=== PATIENT | male | born 1975 | race Caucasian/White ===

== ENCOUNTER 2017-10-29 19:07 | Inpatient (IN) | payer BC, OTHER ==
[~2017-10-29] VITALS: Ht 177.8 cm; Wt 83.9 kg
[2017-10-29] MEDS ORDERED: diphenhydrAMINE 50 MG CAPSULE PO PRN (21:15)
[2017-10-29] MEDS ORDERED: HYDROXYZINE PAMOATE 25 MG CAPSULE PO PRN (21:15)
[2017-10-29] MEDS ORDERED: BUPRENORPHINE HCL 2 MG TAB.SUBL SL PRN (21:15)
[2017-10-29] MEDS ORDERED: MAGNESIUM HYDROXIDE 30 ML LIQUID UDC PO PRN (21:15)
[2017-10-29] MEDS ORDERED: LORAZEPAM 2 MG/1 ML VIAL IM PRN (21:15)
[2017-10-29] MEDS ORDERED: ONDANSETRON ODT 4 MG TAB.RAPDIS SL PRN (21:15)
[2017-10-29] MEDS ORDERED: LORAZEPAM 1 MG TABLET PO PRN ×2 (21:15)
[2017-10-29] MEDS ORDERED: ONDANSETRON 4 MG/2 ML VIAL IM PRN (21:15)
[2017-10-29] MEDS ORDERED: LOPERAMIDE HCL 2 MG CAPSULE PO PRN ×2 (21:15)
[2017-10-29] MEDS ORDERED: MAG HYDROX/AL HYDROX/SIMETH 30 ML LIQUID UDC PO PRN (21:15)
[2017-10-29] MEDS ORDERED: ACETAMINOPHEN 325 MG TABLET PO PRN (21:15)
[2017-10-29] MEDS ORDERED: DICYCLOMINE HCL 20 MG TABLET PO PRN (21:15)
[2017-10-29] MEDS ORDERED: MIRALAX 17 GM POWD.PACK PO PRN (21:15)
[2017-10-29] MEDS ORDERED: CLONIDINE HCL 0.1 MG TABLET PO PRN (21:15)
[2017-10-29] MEDS ORDERED: METHOCARBAMOL 750 MG TABLET PO PRN (21:15)
[2017-10-29] MEDS ORDERED: IBUPROFEN 600 MG TABLET PO PRN (21:15)
--- NOTE | 2017-10-29 21:30 | NUR ---
INTAKE ASSESSMENT Pt is in stable condition and able to be admitted on the unit. Unit protocols regarding home medications and vital signs Q4H were explained. Pt verbalized understanding. Will continue admission upon arrival on the unit.
[2017-10-29 21:49] LABS: BASOPHILS % (AUTO) 0.8 % (0.0-2.0); EOSINOPHILS % (AUTO) 1.6 % (0.0-7.0); HEMATOCRIT 37.6 % (36.7-47.1); HEMOGLOBIN 13.2 g/dL (12.5-16.3); LYMPHOCYTES % (AUTO) 37.7 % (20.5-51.5); MEAN CORPUSCULAR HEMOGLOBIN 30.4 uug (23.8-33.4); MEAN CORPUSCULAR HGB CONC 35 g/dL (32.5-36.3); MEAN CORPUSCULAR VOLUME 86.5 fL (73.0-96.2); MONOCYTES % (AUTO) 10.8 % (0.0-11.0); NEUTROPHILS % (AUTO) 49.1 % (38.5-71.5); PLATELET COUNT (AUTO) 260 K/uL (152-348); RED BLOOD CELL COUNT(AUTO) 4.35 MIL/uL (4.06-5.63); WHITE BLOOD COUNT (AUTO) 9.4 K/uL (3.6-10.2)
[2017-10-29 21:50] LABS: BASOPHILS # (AUTO) 0.1 K/uL (0.0-8.0); EOSINOPHILS # (AUTO) 0.2 K/uL (0.0-0.7); LYMPHOCYTES # (AUTO) 3.5 K/uL (20.0-40.0); NEUTROPHILS # (AUTO) 4.6 K/uL (1.8-8.9)
--- NOTE | 2017-10-29 22:00 | NUR ---
ADMISSION NOTE CIWA:9 COWS:9 Pt arrived ambulatory from [facility] Intake to the third floor accompanied by a PASSENGER BARGE MASTER at 2140. Pt is a 41 year old male admitted on 10/29/17 for Heroin, Methamphetamine, Xanax and Marijuana dependency. Pt is full code with NKA. Pt reports PMHx of epilepsy and anxiety. He denies having a PCP. He reports taking home medications of Neurontin 600 mg TID and Depakote 500mg BID. Medications have been reconciled. He reports his last sobriety was for 17 months in November 2015. His last detox was at [facility] in [place], [place] in 2015. He describes his current use as: 1. Heroin 2 grams IV daily for 11 months. Last dose: 2 grams IV on 10/29/17 at 0200 2. Methamphetamine 1/2 gram (smoke) daily for 11 months. Last dose: 1/2 gram on 10/29/17 at 0200. 3. Xanax 2-4 mg intermittently for 11 months. Last dose: 2 mg on 10/29/17 at 0200. 4. Marijuana 1 gram daily. Last dose: 10/29/17 at 0200 He describes his withdrawal symptoms as: "sweats, chills, body aches, nausea." Upon assessment, pt is alert and oriented x4, speech is clear and audible. Pt noted with anxiety, agitation and diaphoresis. Heart rate regular. Denies chest pain or SOB. PERRLA, breathing is even and unlabored, lung sounds clear. Abdomen is soft and non-distended. Bowel sounds present in all quadrants, last BM 10/28/17. Pt reports that BM is regular. Pt's skin is warm, and dry. Noted with multiple scabs on face, bilateral arms, back and chest d/t skin picking. No drainage noted. Pt also noted with closed abscess to left and right forearms. Picture taken and placed in chart. Pt was seen and examined by Dr. Carrasquillo. Pt oriented to room and unit. Safety measures in place. Will continue to monitor.
[2017-10-29 22:05] LABS: ALANINE AMINOTRANSFERASE 14 U/L (16-63); ALKALINE PHOSPHATASE 90 U/L (50-136); ASPARTATE AMINOTRANSFERASE 19 U/L (15-37); BILIRUBIN,TOTAL 0.3 mg/dL (0.2-1.0); CARBON DIOXIDE 27 mmol/L (21-32); CHLORIDE 103 mmol/L (98-107); GLUCOSE 93 mg/dL (74-106); MAGNESIUM 1.9 mg/dL (1.8-2.4); POTASSIUM 4.2 mmol/L (3.5-5.1); TOTAL PROTEIN, SERUM 7.7 g/dL (6.4-8.2); UREA NITROGEN, BLOOD 15 mg/dL (7-18)
[2017-10-29 22:27] LABS: ETHANOL < 3 MG/DL (0-0)
--- NOTE | 2017-10-29 22:47 | NUR ---
PRN CLONIDINE Pt reports anxiety, agitation, and diaphoresis. PRN Clonidine administered as ordered. Safety measures in place. Will monitor effectiveness.
[2017-10-29] MEDS ORDERED: CLONIDINE HCL 0.1 MG TABLET ONE (23:01)
--- NOTE | 2017-10-29 23:47 | NUR ---
PRN CLONIDINE REASSESSMENT PRN medication effective. Pt lying in bed with eyes closed noted to be asleep. Breathing is even and unlabored. Safety measures in place. Will continue to monitor.
[2017-10-30] VITALS: BP 104/56
--- NOTE | 2017-10-30 04:00 | NUR ---
VITALS REFUSED, COWS DEFERRED 0400 vitals refused. COWS deferred d/t pt lying in bed with eyes closed noted to be asleep. Breathing is even and unlabored. Safety measures in place. Will monitor.
--- NOTE | 2017-10-30 07:05 | NUR ---
Start of Shift Endorsement received from nightshift nurse. Pt is a 41 y/o male admitted for Heroin, Meth and occasional Xanax use. Pt has been placed on a 5 day Subutex taper set to began today, 10/30/17. Pt is moderately withdrawing AEB COWS 9 at midnight. Pt reports sleeping 4 hours. Pt received PRN Clonidine. PT is alert and oriented x4. Pt is in STABLE condition at this time. Remains compliant with medication and diet regimen. All needs have been met, All safety measures in place per hospital policy. Bed in lowest position, side rails up x2, call-light within reach. Will continue to monitor
--- NOTE | 2017-10-30 07:11 | NUR ---
END OF SHIFT Pt is a 41 year old male admitted on 10/29/17 for Heroin, Methamphetamine, Xanax and Marijuana dependency. Pt is full code with NKA. Pt reports PMHx of epilepsy and anxiety. He was unable to provide UDS. He is scheduled to start a 5 day Subutex taper today 10/30/17. At 2247 he received PRN Clonidine. He slept a total of 4 hrs, Intake:1590mL, Void:0, BM: 0, COWS:9, CIWA:9. Pt remains alert and oriented x4, breathing is even and unlabored. Safety measures in place. Endorsed to AM shift.
[2017-10-30] MEDS ORDERED: orajel (07:24)
[2017-10-30 08:00] VITALS: BP 105/63
[2017-10-30] MEDS ORDERED: TUBERCULIN,PURIF.PROT.DERIV. 5 TU/0.1 ML TEST ID ONE (09:00)
[2017-10-30] MEDS: GABAPENTIN 300 MG CAPSULE PO SCH ×3 (09:01→20:43)
[2017-10-30] MEDS: DOXYCYCLINE HYCLATE 100 MG TABLET PO SCH ×2 (09:01→20:44)
[2017-10-30] MEDS: DIVALPROEX 500 MG TABLET.DR PO SCH ×2 (09:01→20:43)
[2017-10-30] MEDS: BUPRENORPHINE HCL 2 MG TAB.SUBL SL SCH ×4 (09:34→20:44)
[2017-10-30 09:54] LABS: *AMPHETAMINE, URINE POSITIVE (NEGATIVE); *BARBITURATE, URINE NEGATIVE (NEGATIVE); *CANNABINOID, URINE POSITIVE (NEGATIVE); *COCCAINE, URINE NEGATIVE (NEGATIVE); *OPIATE, URINE POSITIVE (NEGATIVE); *PHENCYCLIDINE SCREEN,URINE NEGATIVE (NEGATIVE)
[2017-10-30 12:00] VITALS: BP 114/66
[2017-10-30 16:00] VITALS: BP 108/60
[2017-10-30] MEDS ORDERED: METHOCARBAMOL 750 MG TABLET PO PRN (16:00)
--- NOTE | 2017-10-30 17:11 | NUR ---
PRN Ativan Administered PRN Ativan 1mg for for CIWA 7
--- NOTE | 2017-10-30 17:50 | NUR ---
Medication re-assessment Medication was effective, CIWA 4 upon re-assessment
--- NOTE | 2017-10-30 19:00 | NUR ---
End of Shift Endorsement given to nightshift nurse. Pt is a 41 y/o male admitted for Heroin, Meth and occasional Xanax use. Pt has been placed on a 5 day Subutex taper. Pt is moderately withdrawing AEB COWS 9, CIWA 7 at 1600. Pt remained . Pt received PRN Ativan for CIWA 7. Educated pt on diet and medication regimen. Intake: 400ml, Void x1, BM x0. PT is alert and oriented x4. Pt is in STABLE condition at this time. Remains compliant with medication and diet regimen. All needs have been met, All safety measures in place per hospital policy. Bed in lowest position, side rails up x2, call-light within reach. Will continue to monitor
--- NOTE | 2017-10-30 19:15 | NUR ---
START OF SHIFT Received 41 year old male patient admitted on 10/29/17 for Heroin, Meth, Xanax, and Marijuana dependency. Pt is full code with BRUCE. He reports a PMHx of epilepsy and anxiety. Pt is currently receiving 5 day Subutex taper and tolerating well. Per endorsement, pt received Ativan PRN. Pt is alert and oriented x4, breathing is even and unlabored. Safety measures in place. Will continue to monitor.
[2017-10-30 20:00] VITALS: BP 117/78
[2017-10-31] VITALS: BP 110/65
--- NOTE | 2017-10-31 04:06 | NUR ---
VITALS REFUSED, COWS/CIWA DEFERRED 0400 vitals refused. COWS and CIWA deferred d/t pt lying in bed with eyes closed noted to be asleep. Breathing even and unlabored. Safety measures in place. Will monitor.
--- NOTE | 2017-10-31 07:08 | NUR ---
END OF SHIFT Pt is a 41 year old male patient admitted on 10/29/17 for Heroin, Meth, Xanax, and Marijuana dependency. Pt is full code with NKA. He reports a PMHx of epilepsy and anxiety. Pt continues on 5 day Subutex taper and tolerating well. He did not receive or request PRN medications. He slept a total of 10hrs, Intake:500mL, Void: x1, BM:0, COWS:7, CIWA:6. Pt remains alert and oriented x4, breathing is even and unlabored. Safety measures in place. Endorsed to AM shift.
--- NOTE | 2017-10-31 07:09 | NUR ---
Start of Shift Endorsement received from nightshift nurse. Pt is a 41 y/o male admitted for Heroin, Meth and occasional Xanax use. Pt has been placed on a 5 day Subutex taper set to began today, 10/30/17. Pt is moderately withdrawing AEB COWS 6, CIWA 6 at 0800. Pt reports sleeping 10 hours. Pt did not receive any PRN medications. PT is alert and oriented x4. Pt is in STABLE condition at this time. Remains compliant with medication and diet regimen. All needs have been met, All safety measures in place per hospital policy. Bed in lowest position, side rails up x2, call-light within reach. Will continue to monitor
[2017-10-31 08:00] VITALS: BP 106/62
[2017-10-31] MEDS: BUPRENORPHINE HCL 2 MG TAB.SUBL SL SCH ×3 (08:46→20:19)
[2017-10-31] MEDS: DOXYCYCLINE HYCLATE 100 MG TABLET PO SCH ×2 (08:46→20:20)
[2017-10-31] MEDS: GABAPENTIN 300 MG CAPSULE PO SCH ×3 (08:46→20:19)
[2017-10-31] MEDS: DIVALPROEX 500 MG TABLET.DR PO SCH ×2 (08:46→20:20)
[2017-10-31 09:06] LABS: HEPATITIS B SURFACE AG Negative (Negative)
[2017-10-31 12:00] VITALS: BP 110/68
[2017-10-31 16:00] VITALS: BP 120/70
[2017-10-31] MEDS: BENZOCAINE ORAL CARE 12 ML BOTTLE MM PRN ×2 (17:07→20:27)
--- NOTE | 2017-10-31 18:43 | NUR ---
End of Shift Endorsement given to nightshift nurse. Pt is a 41 y/o male admitted for Heroin, Meth and occasional Xanax use. Pt has been placed on a 5 day Subutex taper. Pt is moderately withdrawing AEB COWS 7, CIWA 5 at 1600. Pt participated in activities. Pt did not participate in groups despite encouragements. . Pt did not receive any PRN medications. . Intake: 3102ml, Void x4, BM x1. PT is alert and oriented x4. Pt is in STABLE condition at this time. Remains compliant with medication and diet regimen. All needs have been met, All safety measures in place per hospital policy. Bed in lowest position, side rails up x2, call-light within reach. Will continue to monitor
--- NOTE | 2017-10-31 19:30 | NUR ---
Start of Shift Received a 41 y/o male admitted on 10/29/2017 for Heroin, Meth and occasional Xanax use. Px has been placed on a 5 day Subutex taper. Px is alert and oriented x4. During the rounds at 1930, px complained of very high anxiety, restlessness, agitation, body aches and hot/cold sweats. All safety measures in place per hospital policy. Bed in lowest position, side rails up x2, call-light within reach. We'll continue to monitor.
[2017-10-31 20:00] VITALS: BP 111/62
[2017-10-31] MEDS: TRAZODONE 100 MG TABLET PO SCH (20:20)
--- NOTE | 2017-10-31 20:20 | NUR ---
PRN Ativan Px complained of high anxiety, restlessness, agitation, body aches and hot/cold sweats, CIWA 16. Ativan 1 mg/tab, 2 tabs given PO as PRN med. We'll continue to monitor.
--- NOTE | 2017-10-31 20:30 | NUR ---
PRN Motrin Px complained of toothache, 06/24. Motrin 600 mg/tab, 1 tab given PO as PRN med. Benzocaine applied on affected teeth as PRN med. We'll continue to monitor.
[2017-11-01] VITALS: BP 110/64
--- NOTE | 2017-11-01 | NUR ---
COWS and CIWA deferred COWS and CIWA deferred due to the px is asleep, to assess if the px is awake per doctor's order. We'll continue to monitor.
[2017-11-01 04:00] VITALS: BP 120/68
--- NOTE | 2017-11-01 07:05 | NUR ---
Start of Shift Endorsement received from nightshift nurse. Pt is a 41 y/o male admitted for Heroin, Meth and occasional Xanax use. Pt has been placed on a 5 day Subutex tape. Pt is moderately withdrawing AEB COWS 9, CIWA 10 at 1999. Pt reports sleeping 8 hours. Pt received PRN Ativan for CIWA 16 during nightshift. PT is alert and oriented x4. Pt is in STABLE condition at this time. Remains compliant with medication and diet regimen. All needs have been met, All safety measures in place per hospital policy. Bed in lowest position, side rails up x2, call-light within reach. Will continue to monitor
--- NOTE | 2017-11-01 07:11 | NUR ---
End of Shift Notes 41 y/o male admitted on 10/29/2017 for Heroin, Meth and occasional Xanax use. Px has been placed on a 5 day Subutex taper. Px is alert and oriented x4. During the shift, At 2019 Px complained of high anxiety, restlessness, agitation, body aches and hot/cold sweats, CIWA 16. Ativan 1 mg/tab, 2 tabs given PO as PRN med. At 2029, Px complained of toothache, 8/10. Motrin 600 mg/tab, 1 tab given PO as PRN med. Benzocaine applied on affected teeth as PRN meds. Oral intake of 1,500 ml, voided 3x, no BM. Slept for 7.5 hours. All safety measures in place per hospital policy. Bed in lowest position, side rails up x2, call-light within reach. We'll continue to monitor
[2017-11-01 08:00] VITALS: BP 122/71
[2017-11-01] MEDS ORDERED: BUPRENORPHINE HCL 2 MG TAB.SUBL SL SCH (09:00)
[2017-11-01] MEDS: DOXYCYCLINE HYCLATE 100 MG TABLET PO SCH ×2 (09:35→21:53)
[2017-11-01] MEDS: GABAPENTIN 300 MG CAPSULE PO SCH ×2 (09:35→14:39)
[2017-11-01] MEDS: DIVALPROEX 500 MG TABLET.DR PO SCH ×2 (09:35→21:52)
--- NOTE | 2017-11-01 10:02 | NUR ---
Therapist prompted client about group times. Client stated he would go to groups if he doesn't feel "too tired."
[2017-11-01 12:00] VITALS: BP 116/65
[2017-11-01] MEDS ORDERED: KETOROLAC TROMETHAMINE 30 MG INJ IM PRN (12:15)
--- NOTE | 2017-11-01 13:47 | NUR ---
Endorsed PT to Russ ALVARADO
--- NOTE | 2017-11-01 13:48 | NUR ---
RECEIVED CARE Received care from Addy LEON. All pertinent information information discussed. Will cont to monitor. Safety measures in place.
[2017-11-01] MEDS: BUPRENORPHINE HCL 2 MG TAB.SUBL SL SCH ×2 (14:39→21:52)
--- NOTE | 2017-11-01 14:44 | NUR ---
PRN VISTARIL Patient reported anxiety and agitation, PRN Vistaril 25mg Po given as ordered. Will cont to monitor and reassess. m
--- NOTE | 2017-11-01 15:44 | NUR ---
VISTARIL REASSESSMENT Caden stated Vistaril was effective feeling less anxiety and agitated. Addendum: 11/01/17 at 1713 by DEREK JACOB LVN Patient
[2017-11-01 16:00] VITALS: BP 111/70
--- NOTE | 2017-11-01 19:12 | NUR ---
END OF SHIFT Patient cont with Subutex taper tolerating well. During shift patient received PRN Vistaril for anxiety, noted to be effective. Vital signs remained WNL. Encourage Po fluids as tolerated. Last CIWA score was 6/COWS-6 @ 1600. Patient attended groups and activities.Skin intact warm and dry to touch. All needs attended, Safety measures in place. Patient endorsed to night nurse in stable condition.
--- NOTE | 2017-11-01 19:30 | NUR ---
Start of Shift Notes Received a 41 y/o male admitted on 10/29/2017 for Heroin, Meth and occasional Xanax use. Px has been placed on a 5 day Subutex taper. Px is alert and oriented x4. During the rounds at 1930, px complained of high anxiety, restlessness, body aches of 8/10 and hot/cold sweats. All safety measures in place per hospital policy. Bed in lowest position, side rails up x2, call-light within reach. We'll continue to monitor.
[2017-11-01 20:00] VITALS: BP 126/72
[2017-11-01] MEDS ORDERED: GABAPENTIN 300 MG CAPSULE PO SCH (21:00)
[2017-11-01] MEDS ORDERED: LORAZEPAM 1 MG TABLET PO PRN (21:15)
[2017-11-01] MEDS ORDERED: LORAZEPAM 1 MG TABLET ONE (21:42)
[2017-11-01] MEDS: TRAZODONE 100 MG TABLET PO SCH (21:52)
[2017-11-01] MEDS: CLONIDINE HCL 0.1 MG TABLET PO SCH (21:52)
[2017-11-01] MEDS: LORAZEPAM 1 MG TABLET PO PRN (21:53)
[2017-11-01] MEDS: BACLOFEN 10 MG TABLET PO SCH (21:53)
[2017-11-02] VITALS: BP 112/68
--- NOTE | 2017-11-02 | NUR ---
COWS and CIWA deferred COWS and CIWA deferred due to the px is asleep, to assess if the px is awake per doctors order. Well continue to monitor.
[2017-11-02 04:00] VITALS: BP 119/72
--- NOTE | 2017-11-02 07:12 | NUR ---
End of Shift Notes 41 y/o male admitted on 10/29/2017 for Heroin, Meth and occasional Xanax use. Px has been placed on a 5 day Subutex taper. Px is alert and oriented x4. During the shift, px complained of high anxiety, restlessness, body aches of 8/10 and hot/cold sweats. Oral intake of 1.5 L, voided 5x, No BM. Slept for 7.5 hours. All safety measures in place per hospital policy. Bed in lowest position, side rails up x2, call-light within reach. We'll continue to monitor.
--- NOTE | 2017-11-02 07:13 | NUR ---
Start of Shift Notes: Received patient in his room. Alert and verbally responsive. Oriented x 4 Able to make his needs known. Respirations even and unlabored. No SOB noted. Skin warm and dry to touch. Abdomen soft and non-distended with (+) BS in all 4 quadrants. No complains of N/V/D or abdominal discomfort noted. Bladder non-distended. Voids independently. Ambulatory ad rosemarie with steady gait. Patient is a 41 year old male admitted for opiate/meth/BZO dependence who was placed on a 5-day Subutex and PRN Ativan taper as ordered. No adverse reactions noted. Prior to admission, patient was using 2 grams of Heroin, 0.5grams of methamphetamine, and 2-4mg intermittently Xanax. NKA. FULL CODE. Regular diet. On fall and seizure precautions. Educated patient on his current plan of care for the day and his medication regimen. Encouraged oral fluid intake and encouraged group participation to learn new skills to prevent relapse. Will continue to monitor.
[2017-11-02 08:00] VITALS: BP 100/52
[2017-11-02] MEDS: CLONIDINE HCL 0.1 MG TABLET PO SCH ×2 (08:57→20:20)
[2017-11-02] MEDS: DOXYCYCLINE HYCLATE 100 MG TABLET PO SCH ×2 (08:57→20:22)
[2017-11-02] MEDS: GABAPENTIN 300 MG CAPSULE PO SCH (08:57)
[2017-11-02] MEDS: BACLOFEN 10 MG TABLET PO SCH (08:58)
[2017-11-02] MEDS: BUPRENORPHINE HCL 2 MG TAB.SUBL SL SCH ×3 (08:58→20:20)
[2017-11-02] MEDS: DIVALPROEX 500 MG TABLET.DR PO SCH ×2 (08:58→20:21)
--- NOTE | 2017-11-02 10:54 | NUR ---
Bentyl 20 mg PO given: Patient noted with complain of stomach cramps related to withdrawal. Denies any diarrhea or constipation. LBM 11/01/2017 in the evening. Medicated patient with Bentyl 20 mg PO as ordered. Will monitor for effectiveness.
--- NOTE | 2017-11-02 11:54 | NUR ---
Re-assessment: Bentyl Per patient, PRN Bentyl was effective in reducing stomach cramps.
[2017-11-02 12:00] VITALS: BP 92/50
[2017-11-02] MEDS: BACLOFEN 20 MG TABLET PO SCH ×2 (14:11→20:22)
[2017-11-02] MEDS: GABAPENTIN 400 MG CAPSULE PO SCH ×2 (14:11→20:21)
[2017-11-02 16:00] VITALS: BP 118/70
[2017-11-02] MEDS: LORAZEPAM 1 MG TABLET PO PRN ×2 (16:55→20:21)
--- NOTE | 2017-11-02 16:57 | NUR ---
PRN Ativan 1 mg PO given: Patient noted with moderate anxiety and mild to moderate agitation. AZ 100 bounding. Medicated patient with Ativan 1 mg PO for CIWA 7. Will monitor for effectiveness.
--- NOTE | 2017-11-02 17:57 | NUR ---
Re-assessment: Ativan Per patient, PRN Ativan has been effective in reducing patient's anxiety and agitation. CIWA 4.
--- NOTE | 2017-11-02 19:02 | NUR ---
End of Shift Notes: Patient continues to be on 5-day Subutex and PRN Ativan as ordered. No adverse reactions noted. VS monitored closely. No significant abnormalities noted. Withdrawal symptoms were closely monitored. Initial COWS 5/CIWA 2, patient presented with chills, anxiety, agitation, hot flashes, stomach cramps, and fine tremors. Medicated patient with Bentyl 20 mg PO at 1054 with help after 1 hour. At 1657, patient noted with CIWA 7 due to moderate anxiety and mild to moderate agitation. Medicated patient with Ativan 1 mg PO as ordered with help after 1 hour. Denies S/I or H/I. Denies any AV hallucinations. Last COWS 4/CIWA 4. Per patient Subutex has been effective in reducing his withdrawal symptoms. Encouraged to participate in group and activities due to episodes of self isolation. All needs met and attended. Will continue to monitor closely.
--- NOTE | 2017-11-02 19:30 | NUR ---
Start of Shift Notes Received a 41 y/o male admitted on 10/29/2017 for Heroin, Meth and occasional Xanax use. Px has been placed on a 5 day Subutex taper. Px is alert and oriented x4. During the rounds at 1930, px complained of high anxiety, restlessness, body aches of 9/10 and hot/cold sweats. All safety measures in place per hospital policy. Bed in lowest position, side rails up x2, call-light within reach. We'll continue to monitor.
[2017-11-02 20:00] VITALS: BP 126/79
[2017-11-02] MEDS: TRAZODONE 100 MG TABLET PO SCH (20:21)
--- NOTE | 2017-11-02 20:21 | NUR ---
PRN meds Px complained of high anxiety, restlessness, body aches of 9/10 and hot/cold sweats. CIWA 8. Robaxin 750 mg/tab, 1 tab and Ativan 1 mg/tab, 1 tab given PO as PRN meds. We'll continue to monitor.
[2017-11-03] VITALS: BP 90/58
[2017-11-03 04:00] VITALS: BP 117/69
--- NOTE | 2017-11-03 04:00 | NUR ---
COWS and CIWA deferred COWS and CIWA deferred at 0000 and 0400 due to the px is asleep, to assess if the px is awake per doctors order. Well continue to monitor.
--- NOTE | 2017-11-03 07:20 | NUR ---
End of Shift Notes 41 y/o male admitted on 10/29/2017 for Heroin, Meth and occasional Xanax use. Px has been placed on a 5 day Subutex taper. Px is alert and oriented x4. During the shift, px complained of high anxiety, restlessness, body aches of 9/10 and hot/cold sweats. Robaxin 750 mg/tab, 1 tab and Ativan 1 mg/tab, 1 tab given PO as PRN med. All safety measures in place per hospital policy. Oral intake of 1,300 ml, voided 4x, BM 1x. Slept for 5 hours. Bed in lowest position, side rails up x2, call-light within reach. We'll continue to monitor.
[2017-11-03 08:00] VITALS: BP 110/71
[2017-11-03] MEDS: BACLOFEN 20 MG TABLET PO SCH ×3 (08:52→20:39)
[2017-11-03] MEDS: GABAPENTIN 400 MG CAPSULE PO SCH ×3 (08:53→20:38)
[2017-11-03] MEDS: DOXYCYCLINE HYCLATE 100 MG TABLET PO SCH ×2 (08:53→20:39)
[2017-11-03] MEDS: DIVALPROEX 500 MG TABLET.DR PO SCH ×2 (08:53→20:39)
[2017-11-03] MEDS: CLONIDINE HCL 0.1 MG TABLET PO SCH ×2 (08:53→20:39)
[2017-11-03] MEDS ORDERED: BUPRENORPHINE HCL 2 MG TAB.SUBL SL SCH (09:00)
[2017-11-03 12:00] VITALS: BP 128/75
[2017-11-03] MEDS: HYDROXYZINE PAMOATE 25 MG CAPSULE PO PRN ×2 (14:18→20:43)
--- NOTE | 2017-11-03 14:18 | NUR ---
Vistaril 50 mg PO given: Patient complained of anxiety. VS stable. Non-pharmacological interventions provided but ineffective. Medicated patient with Vistaril 50 mg PO as ordered. Will monitor for effectiveness.
--- NOTE | 2017-11-03 15:18 | NUR ---
Re-assessment: Vistaril Per patient, PRN Vistaril was effective in reducing patient's anxiety.
[2017-11-03 16:00] VITALS: BP 124/79
--- NOTE | 2017-11-03 18:50 | NUR ---
End of Shift Notes: Patient continues to be on 5-day Subutex and PRN Ativan as ordered. No adverse reactions noted. VS monitored closely. No significant abnormalities noted. Withdrawal symptoms were closely monitored. Initial COWS 6/CIWA 4, patient presented with chills, anxiety, agitation, hot flashes, stomach cramps, and fine tremors. Denies S/I or H/I. Denies any AV hallucinations. Medicated patient with Vistaril 50 mg PO at 1418 with help after 1 hour. Last COWS 3/CIWA 3. Per patient Subutex has been effective in reducing his withdrawal symptoms. Encouraged to participate in group and activities due to episodes of self isolation. All needs met and attended. Will continue to monitor closely.
[2017-11-03 20:00] VITALS: BP 121/79
[2017-11-03] MEDS ORDERED: CLON0.1T14 PO (20:00)
[2017-11-03] MEDS ORDERED: IBUP-1955 PO (20:00)
[2017-11-03] MEDS ORDERED: GABA-536 PO (20:00)
[2017-11-03] MEDS ORDERED: DOXY100T2 PO (20:00)
[2017-11-03] MEDS ORDERED: DICY20TA28 PO (20:00)
[2017-11-03] MEDS ORDERED: DIVA500T2 PO (20:00)
[2017-11-03] MEDS ORDERED: HYDR-3895 PO (20:00)
[2017-11-03] MEDS ORDERED: BACL20TA PO (20:00)
[2017-11-03] MEDS ORDERED: TRAZ-147 PO (20:00)
--- NOTE | 2017-11-03 20:00 | NUR ---
START OF SHIFT NOTE RECEIVED REPORT FROM DAY SHIFT NURSE. PATIENT IS A 41 YEAR OLD MALE ADMITTED FOR OPIATE/METH DEPENDENCE. PATIENT COMPLETED 5 DAY SUBUTEX TAPER, TOLERATED WELL AND NO ADVERSE REACTION. PATIENT IS MEDICALLY CLEARED TO BE DISCHARGE TOMORROW. PATIENT HAS ANBESOL FOR TOOTHACHE. ON DOXYCYCLINE FOR ABSCESS ON BILATERAL ARMS, NO ADVERSE REACTION. LAST COWS 5 AND CIWA 3. RECEIVED PATIENT ALERT AND ORIENTED X 4. RESPIRATION EVEN AND UNLABORED. DENIES ANY PAIN. NO N/V, ANXIOUS. ON FALL PRECAUTION. SAFETY MEASURES IN PLACE. CALL LIGHT IN REACH. WILL CONTINUE TO MONITOR.
[2017-11-03] MEDS: TRAZODONE 100 MG TABLET PO SCH (20:39)
--- NOTE | 2017-11-03 20:43 | NUR ---
PRN VISTARIL ADMINISTRATION PATIENT REPORTS ANXIETY, NOTED RESTLESS, IRRITABLE AND AGITATED. WILL MONITOR FOR EFFECTIVENESS. RELAXATION TECHNIQUE PROVIDED.
--- NOTE | 2017-11-03 21:43 | NUR ---
PRN VISTARIL RE-ASSESSMENT PATIENT STATES VISTARIL IS HELPFUL, ANXIETY IS LESS. WILL CONTINUE TO MONITOR
--- NOTE | 2017-11-04 | NUR ---
COWS AND CIWA DEFERRED PATIENT SLEEPING. COWS AND CIWA DEFERRED. PATIENT REFUSED VS. RESPIRATION EVEN AND UNLABORED. SAFETY MEASURES IN PLACE. CALL LIGHT IN REACH. WILL CONTINUE TO MONITOR.
--- NOTE | 2017-11-04 07:16 | NUR ---
END OF SHIFT NOTE PATIENT IS A 41 YEAR OLD MALE ADMITTED FOR OPIATE/METH DEPENDENCE. PATIENT COMPLETED 5 DAY SUBUTEX TAPER, TOLERATED WELL AND NO ADVERSE REACTION. PATIENT IS MEDICALLY CLEARED TO BE DISCHARGE TODAY. PATIENT HAS ANBESOL FOR TOOTHACHE. ON DOXYCYCLINE FOR CLOSED ABSCESS ON BILATERAL ARMS, NO ADVERSE REACTION. PRN VISTARIL GIVEN FOR ANXIETY. PATIENT COMPLIANT WITH MEDICATIONS AND TREATMENT PLAN. ON FALL PRECAUTION. SAFETY MEASURES IN PLACE. CALL LIGHT IN REACH. WILL CONTINUE TO MONITOR. LAST COWS 3 AND CIWA 2. SLEPT 7 HOURS. FLUID INTAKE 849 ML. VOIDED X 4 . NO BM.
[2017-11-04 08:00] VITALS: BP 129/68
--- NOTE | 2017-11-04 08:00 | NUR ---
Start of Shift Notes: Received patient in his room. Alert and verbally responsive. Oriented x 4 Able to make his needs known. Respirations even and unlabored. No SOB noted. Skin warm and dry to touch. Abdomen soft and non-distended with (+) BS in all 4 quadrants. No complains of N/V/D or abdominal discomfort noted. Bladder non-distended. Voids independently. Ambulatory ad rosemarie with steady gait. Patient is a 41 year old male admitted for opiate/meth/BZO dependence who was placed on a 5-day Subutex and PRN Ativan taper as ordered and completed. No adverse reactions noted. Prior to admission, patient was using 2 grams of Heroin, 0.5grams of methamphetamine, and 2-4mg intermittently Xanax. NKA. FULL CODE. Regular diet. On fall and seizure precautions. Educated patient on the discharge process. Patient verbalized good understanding. Will continue to monitor.
[2017-11-04 08:24] VITALS: BP 125/68
[2017-11-04] MEDS: BACLOFEN 20 MG TABLET PO SCH (08:24)
[2017-11-04] MEDS: DOXYCYCLINE HYCLATE 100 MG TABLET PO SCH (08:24)
[2017-11-04] MEDS: HYDROXYZINE PAMOATE 25 MG CAPSULE PO PRN (08:24)
[2017-11-04] MEDS: CLONIDINE HCL 0.1 MG TABLET PO SCH (08:24)
[2017-11-04] MEDS: GABAPENTIN 400 MG CAPSULE PO SCH (08:24)
--- NOTE | 2017-11-04 08:24 | NUR ---
Vistaril 50 mg PO given: Patient complained of anxiety 02/22. He verbalizes that he is anxious about discharge. Reassurance and redirection provided. Medicated patient with Vistaril 50 mg PO as ordered. Will monitor for effectiveness.
[2017-11-04] MEDS: DIVALPROEX 500 MG TABLET.DR PO SCH (08:26)
--- NOTE | 2017-11-04 09:24 | NUR ---
Re-assessment: Per patient, PRN Vistaril was effective in reducing anxiety. Patient states he is mildly anxious at this time.
--- NOTE | 2017-11-04 09:40 | NUR ---
Discharged: Patient left the unit at this time in stable condition. COWS1/CIWA 1 due to mild anxiety. All clothings, medications and valuables were returned to the patient. Educated patient on his discharge instructions and prescription medication. Patient verbalized good understanding and appeared motivated to sobriety. LINEN SORTER cabinet checked, cassette in med room checked. Picked up by [facility] to be transported to [facility].
== END 2017-11-04 09:40 | disposition other institution (70) | DRG 895 ==
LOC: SRC 20:38
PROVIDERS: ADMIT Internal Medicine; ATTEND Internal Medicine
PROC: HZ2ZZZZ Detoxification Services for Substance Abuse Treatment (ICD-10-PCS; principal; 2017-10-29)
PROC: HZ41ZZZ Group Counseling for Substance Abuse Treatment, Behavioral (ICD-10-PCS; 2017-11-03)
DX: F11.23 Opioid dependence with withdrawal (principal); G40.919 Epilepsy, unspecified, intractable, without status epilepticus; L02.413 Cutaneous abscess of right upper limb; L02.414 Cutaneous abscess of left upper limb; F41.9 Anxiety disorder, unspecified; F13.10 Sedative, hypnotic or anxiolytic abuse, uncomplicated; F15.23 Other stimulant dependence with withdrawal; G47.00 Insomnia, unspecified; F32.9 Major depressive disorder, single episode, unspecified; F17.210 Nicotine dependence, cigarettes, uncomplicated; Z20.5 Contact with and (suspected) exposure to viral hepatitis; S41.142S Puncture wound with foreign body of left upper arm, sequela; S41.141S Puncture wound with foreign body of right upper arm, sequela; X78.8XXS Intentional self-harm by other sharp object, sequela; Z81.1 Family history of alcohol abuse and dependence; Z91.89 Other specified personal risk factors, not elsewhere classified
CPT/HCPCS: 36415; 70030-TC; 80307; 80324; 80346; 80349; 80361; 83735; 85025; 86592; 86705; 86803; 87340; 87806; A9150; G0480